=== PATIENT | male | born 1965 | race Caucasian/White ===

== ENCOUNTER 2016-10-30 01:36 | Inpatient (IN) | payer OTHER ==
[2016-10-30] VITALS (8 sets, daily range): BP systolic 92–150; BP diastolic 61–74
[~2016-10-30] VITALS: Ht 167.6 cm; Wt 93.7 kg
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
--- NOTE | ~2016-10-30 | EKG ---
[address] [address] ELECTROCARDIOGRAM REPORT Name: CAMRON FRANCE Room #: 215-P ADM IN M.R.#: [id number] Admission: 10/30/16 Attend Phys: Alec Lund MD Discharge: Date of : 61 Report #: [id number] THIS REPORT FOR: //name// [facility] ED Test Date: 2016-10-30 Test Time: 01:39:27 Pat Name: CAMRON FRANCE Department: Room: 215 Gender: M Edger Automatic: RADU : 1965 Requested By: Amanda Alvarez Order Number: [id number] MD: Aubrey Ng Measurements Intervals [place] Rate: 84 P: 64 MT: 149 QRS: 99 QRSD: 116 T: 36 QT: 377 QTc: 446 Interpretive Statements Sinus rhythm Probable left atrial enlargement Nonspecific intraventricular conduction delay ST elev, probable normal early repol pattern Compared to ECG 03/09/2008 07:43:56 Intraventricular conduction delay now present ST (T wave) deviation now present Sinus tachycardia no longer present Incomplete right bundle-branch block no longer present Electronically Signed On 10-30-2016 17:55:37 CDT by Aubrey Ng [email or web address] <ELECTRONICALLY SIGNED> By: Aubrey Ng MD 10/30/16 1755 0139 [id number] Aubrey Ng MD /EPI
[2016-10-30 02:04] LABS: ABSOLUTE NEUTROPHILS 8.5 thou/uL (1.4-8.2); BASOPHILS 0.8 % (0.0-2.0); EOSINOPHILS 1.4 % (0.0-3.0); HEMATOCRIT 48.4 % (42.0-52.0); HEMOGLOBIN 17.3 gm/dL (14.0-18.0); LYMPHOCYTES 27.5 % (24.0-44.0); MCH 33.2 pg (26.0-34.0); MCHC 35.8 g/dL (28.0-37.0); MCV 92.6 fL (80.0-100.0); MONOCYTES 5.9 % (1.0-8.0); POLYS 64.4 % (36.0-66.0); RBC 5.23 mil/uL (4.50-6.00); RDW 13.5 % (10.5-14.5); WBC 13.2 thou/uL (4.0-11.0)
[2016-10-30 02:10] LABS: MANUAL DIFF NO
[2016-10-30 02:39] LABS: ANION GAP 14 mmol/L (7-16); BUN 18 mg/dL (7-18); CALCIUM 9.1 mg/dL (8.5-10.1); CHLORIDE 96 mmol/L (98-107); CO2 20 mmol/L (21-32); CREATININE 1.1 mg/dL (0.7-1.3); GLUCOSE 167 mg/dL (74-106); POTASSIUM 3.6 mmol/L (3.5-5.1); SODIUM 130 mmol/L (136-145)
[2016-10-30 02:47] LABS: PLATELET COUNT 288 thou/uL (150-400)
[2016-10-30 02:49] LABS: TROPONIN-I < 0.04 ng/mL (<0.04-0.07)
[2016-10-30 06:27] LABS: CHOLESTEROL 253 mg/dL (<200); HDL CHOLESTEROL 43 mg/dL (>40); TC:HDL 5.9 Ratio (Not establshd); TRIGLYCERIDE 527 mg/dL (<150); VLDL 105 mg/dL (<40)
[2016-10-30 06:28] LABS: URINE BILIRUBIN NEGATIVE (Negative); URINE BLOOD NEGATIVE (Negative); URINE COLOR YELLOW; URINE GLUCOSE-RANDOM* NEGATIVE (Negative); URINE KETONES NEGATIVE (Negative); URINE LEUKOCYTES-REFLEX NEGATIVE (Negative); URINE PROTEIN (DIPSTICK) NEGATIVE (Negative); URINE SPECIFIC GRAVITY 1.015 (1.003-1.035); URINE UROBILINOGEN 0.2 E.U./dl (0.2-1.0)
[2016-10-30 06:28] LABS: SERUM ASSESSMENT Slight Lipemia
[2016-10-30 06:33] LABS: AMP/METHAMP Negative (Negative); BARBITURATES Negative (Negative); BENZODIAZEPINES POSITIVE (Negative); COCAINE Negative (Negative); METHADONE Negative (Negative); OPIATES POSITIVE (Negative); PCP Negative (Negative); THC Negative (Negative)
[2016-10-30 09:04] LABS: CK-MB MASS 0.8 ng/mL (<0.5-3.6); TROPONIN-I < 0.04 ng/mL (<0.04-0.07)
[2016-10-30 09:25] LABS: ABG SAMPLE TYPE ARTERIAL; BE(vivo) -2.4 mmol/L (-2 to +3); HCO3 20.8 mmol/L (22.0-26.0); LACTATE 2.03 mmol/L (0.5-2.0); O2(CT) 22.9 mL/dL (15.0-23.0); O2Hb 93.5 % (92.0-98.0); PCO2 32.6 mmHg (35.0-45.0); PO2 88.4 mmHg (80.0-100.0); pH 7.423 (7.360-7.450); tCO2 21.8 mmol/L (24.0-30.0)
[2016-10-30 09:26] LABS: STICK SITE R.RADIAL
[2016-10-30 14:58] LABS: CK-MB MASS 0.8 ng/mL (<0.5-3.6); TROPONIN-I < 0.04 ng/mL (<0.04-0.07)
[2016-10-30] MEDS ORDERED: VALIUM5 MG PO (16:41)
[2016-10-30] MEDS ORDERED: SERTRALINE HCL50 MG PO (16:42)
[2016-10-30] MEDS ORDERED: FENOFIBRATE160 MG PO (16:44)
[2016-10-30] MEDS ORDERED: KEPPRA 500 MG500 MG PO (16:45)
[2016-10-30] MEDS ORDERED: PRINIVIL20 MG PO (16:47)
[2016-10-30] MEDS ORDERED: LEVOTHYROXINE 0.1 MG (16:47)
[2016-10-30] MEDS ORDERED: LOPRESSOR25 PO (16:48)
[2016-10-30] MEDS ORDERED: ZANAFLEX4 MG PO (16:49)
[2016-10-30] MEDS ORDERED: SPIRIVA INH (16:51)
[2016-10-30] MEDS ORDERED: OXYCODONE HCL15 MG PO (16:51)
[2016-10-30] MEDS ORDERED: DULERA 200 MCG/13 GM INH (16:52)
[2016-10-31 03:23] LABS: HEMATOCRIT 49.4 % (42.0-52.0); MCH 32.1 pg (26.0-34.0); MCHC 34.5 g/dL (28.0-37.0); MCV 92.9 fL (80.0-100.0); RBC 5.32 mil/uL (4.50-6.00); RDW 13.9 % (10.5-14.5); WBC 19.1 thou/uL (4.0-11.0)
[2016-10-31 03:39] LABS: CALCIUM 9.2 mg/dL (8.5-10.1); CREATININE 0.9 mg/dL (0.7-1.3); POTASSIUM 4.8 mmol/L (3.5-5.1)
[2016-10-31 04:11] LABS: GLYCOHEMOGLOBIN (HGB A1C) 5.7 % (4.8-5.6)
[2016-10-31 04:30] VITALS: BP 115/70
[2016-10-31 08:00] VITALS: BP 116/64
[2016-10-31 12:05] VITALS: BP 136/82
[2016-10-31 17:05] VITALS: BP 113/64
[2016-10-31 19:32] VITALS: BP 132/73
[2016-11-01 04:00] VITALS: BP 122/80
[2016-11-01 08:00] VITALS: BP 150/88
[2016-11-01 11:49] LABS: HEMOGLOBIN 15.4 gm/dL (14.0-18.0); MCH 31.8 pg (26.0-34.0); MCHC 33.5 g/dL (28.0-37.0); MCV 94.7 fL (80.0-100.0); RBC 4.86 mil/uL (4.50-6.00); RDW 13.9 % (10.5-14.5); WBC 22.7 thou/uL (4.0-11.0)
[2016-11-01 11:55] LABS: CALCIUM 8.6 mg/dL (8.5-10.1); CREATININE 0.7 mg/dL (0.7-1.3); POTASSIUM 4.1 mmol/L (3.5-5.1)
[2016-11-01 12:55] VITALS: BP 122/66
[2016-11-01 16:10] VITALS: BP 120/69
[2016-11-01 19:57] VITALS: BP 128/72
[2016-11-02 04:30] VITALS: BP 122/74
[2016-11-02 07:29] VITALS: BP 154/93
[2016-11-02] MEDS ORDERED: PREDNISONE 10 M10 MG PO (11:00)
[2016-11-02 11:14] VITALS: BP 154/93
== END 2016-11-02 15:02 | disposition home or self-care (01) | DRG 191 ==
LOC: ER 01:36 → EROBS 04:16 → 2N 04:16
PROVIDERS: Emergency Medicine; Internal Medicine; Internal Medicine Pulmonary Disease; Nurse Practitioner Family
DX: J44.1 Chronic obstructive pulmonary disease with (acute) exacerbation (principal); E87.1 Hypo-osmolality and hyponatremia; R07.89 Other chest pain; I10 Essential (primary) hypertension; I25.10 Atherosclerotic heart disease of native coronary artery without angina pectoris; E78.5 Hyperlipidemia, unspecified; F11.90 Opioid use, unspecified, uncomplicated; F41.9 Anxiety disorder, unspecified; M54.9 Dorsalgia, unspecified; F17.210 Nicotine dependence, cigarettes, uncomplicated; K74.60 Unspecified cirrhosis of liver; G89.4 Chronic pain syndrome; F10.10 Alcohol abuse, uncomplicated; E78.1 Pure hyperglyceridemia; D72.829 Elevated white blood cell count, unspecified; G47.33 Obstructive sleep apnea (adult) (pediatric); R73.9 Hyperglycemia, unspecified; E66.3 Overweight; Y90.0 Blood alcohol level of less than 20 mg/100 ml; Z79.899 Other long term (current) drug therapy; I25.2 Old myocardial infarction; Z68.33 Body mass index [BMI] 33.0-33.9, adult; Z71.6 Tobacco abuse counseling; Z71.41 Alcohol abuse counseling and surveillance of alcoholic; Z95.5 Presence of coronary angioplasty implant and graft; Z82.49 Family history of ischemic heart disease and other diseases of the circulatory system; Z79.82 Long term (current) use of aspirin; Z87.898 Personal history of other specified conditions
CPT/HCPCS: 10081